=== PATIENT | male | born 1980 | race Two or more races ===

== ENCOUNTER 2018-06-01 05:25 | Emergency (ER) | payer MEDICAID, OTHER ==
[~2018-06-01] VITALS: Ht 185.4 cm; Wt 111.1 kg
[~2018-06-01 05:25] MED LIST: ASPI-605 PO; GLYB1TAB3 PO; LISI10TA5 PO; METF500T PO
--- NOTE | 2018-06-01 05:40 | NUR ---
Dr. Sosa at bedside for MSE.
[2018-06-01 05:47] LABS: *BILIRUBIN,URIN 1+ (NEGATIVE); *BLOOD, URINE NEGATIVE (NEGATIVE); *CLARITY,URINE CLEAR (CLEAR); *COLOR,URINE YELLOW (YELLOW); *KETONES,URINE 2+ (NEGATIVE); *UROBILINOGEN,URINE 0.2 E.U./dl (NORMAL); LEUKOCYTE ESTERASE ,URINE NEGATIVE (NEGATIVE); NITRITE, URINE NEGATIVE (NEGATIVE); UGLUCOSE 2+ (NEGATIVE)
[2018-06-01 05:56] LABS: BACTERIA,URINE NONE SEEN /HPF (NONE SEEN); RBC,URINE 0-3 /HPF (0-3); SQUAMOUS EPITHELIAL CELL,UR FEW /HPF (NONE SEEN); WBC,URINE 0-3 /HPF (0-3)
[2018-06-01] MEDS ORDERED: HYDROMORPHONE 1 MG/1 ML DISP.SYRIN ONE (05:57)
[2018-06-01] MEDS ORDERED: ONDANSETRON 4 MG/2 ML VIAL ONE (05:58)
[2018-06-01] MEDS ORDERED: IV NORMAL SALINE 1000 ML BAG IV ONE ×2 (06:00→07:30)
[2018-06-01] MEDS ORDERED: HYDROMORPHONE 1 MG/1 ML DISP.SYRIN IV ONE (06:00)
[2018-06-01] MEDS ORDERED: ONDANSETRON 4 MG/2 ML VIAL IV ONE (06:00)
[2018-06-01 06:04] LABS: BASOPHILS % (AUTO) 0.3 % (0.0-2.0); EOSINOPHILS % (AUTO) 0.1 % (0.0-7.0); HEMOGLOBIN 15.4 g/dL (12.5-16.3); LYMPHOCYTES % (AUTO) 11.1 % (20.5-51.5); MEAN CORPUSCULAR HEMOGLOBIN 27.7 uug (23.8-33.4); MEAN CORPUSCULAR HGB CONC 34 g/dL (32.5-36.3); MEAN CORPUSCULAR VOLUME 81.1 fL (73.0-96.2); MONOCYTES # (AUTO) 1.1 K/uL (2.0-10.0); MONOCYTES % (AUTO) 12.5 % (0.0-11.0); NEUTROPHILS # (AUTO) 6.9 K/uL (1.8-8.9); PLATELET COUNT (AUTO) 119 K/uL (152-348); RED BLOOD CELL COUNT(AUTO) 5.55 MIL/uL (4.06-5.63); WHITE BLOOD COUNT (AUTO) 9.1 K/uL (3.6-10.2)
--- NOTE | 2018-06-01 06:10 | NUR ---
Pt out of ER for CT.
[2018-06-01 06:14] LABS: BILIRUBIN,DIRECT 0.2 mg/dL (0.0-0.2); BILIRUBIN,TOTAL 1.1 mg/dL (0.2-1.0); CREATININE 0.9 mg/dL (0.6-1.3); POTASSIUM 3.9 mmol/L (3.5-5.1); TOTAL PROTEIN, SERUM 8.4 g/dL (6.4-8.2)
--- NOTE | 2018-06-01 06:24 | NUR ---
Pt back to ER from CT.
[2018-06-01] MEDS ORDERED: SIMV40TA5 PO (06:37)
[2018-06-01] MEDS ORDERED: OMEP40CA37 PO (06:37)
[2018-06-01] MEDS ORDERED: SITA1TAB6 PO (06:37)
[2018-06-01] MEDS ORDERED: FENO160T PO (06:37)
[2018-06-01] MEDS ORDERED: ACAR100T2 PO (06:37)
[2018-06-01] MEDS ORDERED: LISI30TA4 PO (06:37)
[2018-06-01] MEDS ORDERED: GLIP5TAB13 PO (06:37)
--- NOTE | 2018-06-01 07:07 | NUR ---
Report given to Saji Anna RN [facility].
--- NOTE | 2018-06-01 07:11 | NUR ---
RECEIVED SHIFT REPORT FROM FLORESITA HERNANDEZ. PT RESTING IN BED AT THIS TIME - VSS. 18G IV ACCESS IN R AC INTACT AND PATENT. NS INFUSING AT THIS TIME.
--- NOTE | 2018-06-01 07:20 | NUR ---
FALLON MCKEON SPEAKING W/ AVRIL MCKEON ON PHONE.
--- NOTE | 2018-06-01 07:21 | NUR ---
US TECH AT BEDSIDE.
[2018-06-01] MEDS ORDERED: PIPERACILLIN/TAZOBACTAM/D5W 50 ML IV ONE (07:26)
--- NOTE | 2018-06-01 07:29 | NUR ---
VETERINARY TECHNOLOGY INSTRUCTOR AT BEDSIDE.
[2018-06-01] MEDS ORDERED: PIPERACILLIN SODIUM/TAZOBACTAM 3.375 G in IV DEXTROSE 5% 50 ML IV ONE (07:30)
--- NOTE | 2018-06-01 08:26 | NUR ---
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
--- NOTE | 2018-06-01 09:40 | NUR ---
PT WILL BE TRANSFERRED TO [facility] ROOM [address]. CALL FOR REPORT [phone] CHARLA HERNANDEZ.
--- NOTE | 2018-06-01 09:49 | NUR ---
[facility] TRANSPORT ETA 60-90 MIN
--- NOTE | 2018-06-01 10:03 | NUR ---
REPORT GIVEN TO MARY SANABRIA, AT [facility].
--- NOTE | 2018-06-01 10:35 | NUR ---
PT WILL BE TRANSFERRED TO [facility]IA [facility] [address] ([facility]).
--- NOTE | 2018-06-01 10:42 | NUR ---
Patient Tranfers to outside Facility Physician: VERONICA GIBSON Location: [facility] ROOM [address]
== END 2018-06-01 10:54 | disposition short-term general hospital (02) ==
LOC: ER 05:27
DX: K85.90 Acute pancreatitis without necrosis or infection, unspecified (principal); E11.65 Type 2 diabetes mellitus with hyperglycemia; E87.1 Hypo-osmolality and hyponatremia; I10 Essential (primary) hypertension; Z79.82 Long term (current) use of aspirin; Z79.899 Other long term (current) drug therapy
CPT/HCPCS: 36415; 74176; 76705; 80048; 80076; 81001; 83605; 83690; 85025; 87040 ×2; 96365; 96375; 99285; J1170; J2405; J2543; A4663; J7030